=== PATIENT | male | born 1970 | race Caucasian/White ===

== ENCOUNTER 2021-04-12 18:59 | Emergency (ER) | payer OTHER ==
[2021-04-12 21:11] LABS: HEMOGLOBIN 15.6 gm/dl (14.0-17.5); RED BLOOD COUNT 4.63 M/UL (4.20-5.50); WHITE BLOOD COUNT 18.1 K/UL (4.5-11.0)
[2021-04-13] MEDS ORDERED: ZOFRAN ODT 4 MG4 MG PO (00:59)
[2021-04-13] MEDS ORDERED: FLOMAX0.4 MG PO (00:59)
[2021-04-13] MEDS ORDERED: HYDROCODON-ACE1 EAC4 PO (01:04)
== END 2021-04-13 01:12 | disposition home or self-care (01) ==
LOC: ER1 18:59
PROVIDERS: Physician Assistant
DX: N13.2 Hydronephrosis with renal and ureteral calculous obstruction (principal); F17.210 Nicotine dependence, cigarettes, uncomplicated
CPT/HCPCS: 80053; 81001; 82150; 83605; 83690; 85025; 87086; 99284; Q9967